=== PATIENT | male | born 1930 | race Caucasian/White ===

== ENCOUNTER 2019-06-25 16:55 | Emergency (ER) | payer OTHER ==
[2019-06-25 18:51] LABS: Absolute Lymphocytes (CBC) 2.1 K/uL (0.7-4.9); Basophils % 0.8 % (0-1.3); Hematocrit 37.3 % (39.6-49.0); Lymphocytes % 22.8 % (15.3-44.8); MPV 11.2 fL (7.6-11.3); RBC Red Blood Cell Count 4.31 M/uL (4.33-5.43)
[2019-06-25 18:54] LABS: Protime INR 1.11
[2019-06-25 19:08] LABS: Albumin 3.6 g/dL (3.4-5.0); Bilirubin Direct 0.2 mg/dL (0-0.2); Bilirubin Total 0.6 mg/dL (0.2-1.0); Potassium 3.5 mmol/L (3.5-5.1); Protein, Total 6.8 g/dL (6.4-8.2)
--- NOTE | 2019-06-25 20:27 | RAD REPORT ---
EXAM DESCRIPTION: CT - Abdomen Pelvis W Contrast - 06/25/2019 7:50 pm CLINICAL HISTORY: Abd pain;Constipation COMPARISON: None. TECHNIQUE: Biphasic, helical CT imaging of the abdomen and pelvis was performed following 100 ml non -ionic IV contrast. No oral contrast. All CT scans are performed using dose optimization technique as appropriate and may include automated exposure control or mA/KV adjustment according to patient size. FINDINGS: No suspicious findings in the lung bases. The liver, spleen, and pancreas show no suspicious findings. Cholecystectomy clips are present. No bi liary tree dilatation. Symmetric renal function is seen with no hydronephrosis or suspicious renal mass. No pyelonephritis o r acute parenchymal process. No bladder abnormalities. No adrenal abnormalities. No gastric dilatation or wall thickening. No dilated small bowel loops or focal small bowel abnormali ty. Trace stranding seen in the presacral soft tissues. No colon wall thickening or mass. Sigmoid col on is redundant extending into the anterior upper abdomen. Mild left-sided diverticulosis without div erticulitis. No abnormal stool volume in the colon. No free air, free fluid or pneumatosis. No hernia, mass or bulky lymphadenopathy. No suspicious bony findings. IMPRESSION: Contrast enhanced CT abdomen and pelvis imaging shows no obstruction, free air or surgic ally emergent finding. Minimal stranding in the presacral soft tissues, nonspecific with no wall thickening or focal abnorma lity of the adjacent rectum. No abnormal stool volume in the colon.
[2019-06-25 21:09] LABS: Urine Blood NEGATIVE (NEG); Urine Glucose NEGATIVE (NEG); Urine Protein NEGATIVE (NEG)
--- NOTE | 2019-06-25 21:31 | ER ---
Nurse's Notes [facility] Name: Yosi Odonnell Age: 89 yrs Sex: Male : 1930 Arrival Date: 06/25/2019 Time: 17:06 Bed 16 Private MD: Diagnosis: Unspecified abdominal pain;Diarrhea, unspecified Presentation: 06/25 17:06 Presenting complaint: EMS states: Pt. is 89 yr. old, was recently discharged from [address] for constipation. They did an x-ray and it showed that the pt. was not impacted and was sent home with medication for the constipation. Family reports that the pt. has not taken any of the medications that were prescribed due to the pt. vomiting. Had a loose bowel movement and it was brown with pink steaks and pus. BP 111/68. Transition of care: patient was not received from another setting of care. Onset of symptoms is unknown. Risk Assessment: Do you want to hurt yourself or someone else? Patient reports no desire to harm self or others. Care prior to arrival: None. 17:06 Method Of Arrival: EMS: [place] [id number] 17:06 Acuity: CORRINE 3 [facility] 17:06 Initial Sepsis Screen: Does the patient meet any 2 criteria? No. Patient's initial [facility] sepsis screen is negative. Does the patient have a suspected source of infection? No. Patient's initial sepsis screen is negative. Triage Assessment: 17:00 General: Appears in no apparent distress. comfortable, obese, Behavior is calm, rb1 cooperative, Denies fever. Pain: Complains of pain in abdomen Pain currently is 5 out of 10 on a pain scale. Neuro: Level of Consciousness is awake, obeys commands, confused, Oriented to person. Cardiovascular: Capillary refill < 3 seconds is brisk in bilateral fingers. Respiratory: Airway is patent Respiratory effort is even, unlabored, Respiratory pattern is regular, symmetrical. GI: Parent/caregiver reports the patient having constipation, diarrhea, vomiting. : Parent/caregiver report the patient having incontinence. Derm: Skin is pink, warm \T\ dry. Historical: - Allergies: 17:06 Sulfa (Sulfonamide Antibiotics); rb1 - Home Meds: 17:06 levothyroxine 112 mcg tab 1 tab once daily [Active]; rivastigmine tartrate oral 13.3 rb1 mg/ 24 h oral daily [Active]; Januvia 100 mg oral tab 1 tab once daily [Active]; losartan-hydrochlorothiazide 100-25 mg oral tab 1 tab once daily [Active]; gabapentin 300 mg oral cap 1 cap 3 times per day [Active]; amlodipine 10 mg tab 1 tab once daily [Active]; memantine HCL ER 28 mg 1 tab daily [Active]; ranitidine HCl 300 mg Oral cap 1 cap 2 times per day [Active]; pioglitazone HCL/Actos 30 mg 1 tab daily [Active]; metformin 500 mg Oral tab 1 tab 3 times a day [Active]; citalopram 40 mg tab 1 tab once daily [Active]; furosemide 40 mg Oral tab 1 tab once daily [Active]; potassium chloride 20 mEq Oral TbER 2 tab once daily [Active]; atorvastatin 20 mg oral tab 1 tab once daily [Active]; tamsulosin 0.4 mg oral cp24 1 cap once daily [Active]; trazodone 50 mg Oral tab 1 tab daily [Active]; isosorbide mononitrate 120 mg Oral Tb24 1 tab once daily [Active]; aspirin 81 mg Oral chew 1 tab once daily [Active]; melatonin 10 mg Oral tab 1 tab daily [Active]; - PMHx: 17:06 Diabetes - NIDDM; High Cholesterol; Hypertension; rb1 17:06 Dementia; Alzheimers; heart disease; prostate; Anxiety; Depression; umbilical hernia; rb1 - PSHx: 17:06 pacemaker; Quadruple Bypass; left hand; left femur; right knee; Cholecystectomy; rb1 - Immunization history:: Adult Immunizations up to date. - Social history:: Smoking status: Patient/guardian denies using tobacco. - Ebola Screening: : Patient negative for fever greater than or equal to 101.5 degrees Fahrenheit, and additional compatible Ebola Virus Disease symptoms. Screenin:06 Abuse screen: Denies threats or abuse. Nutritional screening: No deficits noted. rb1 Tuberculosis screening: No symptoms or risk factors identified. Fall Risk Fall in past 12 months (25 points). Secondary diagnosis (15 points) Alzheimer's, dementia, impaired mobility, No IV (0 pts). Ambulatory Aid- Crutches/Cane/Walker (15 pts). Gait- Weak (10 pts.). Mental Status- Overestimates/Forgets Limitations (15 pts.). Total Snyder Fall Scale indicates High Risk Score (45 or more points). Fall prevention measures have been instituted. Side Rails Up X 2 Placed Close to Nursing Station 1:1 Attendant Assigned Frequent Obs/Assessments Occuring Family Present and informed to notify staff if the need to leave the bedside As available patient and family educated on Fall Prevention Program and Strategies. Assessment: 17:00 General: See triage assessment. rb1 17:06 GI: Bowel sounds present X 4 quads. Abd is soft X 4 quads. rb1 18:00 Reassessment: Patient appears in no apparent distress at this time. No changes from rb1 previously documented assessment. 19:00 Reassessment: Notified provider that the family reports the pt. has anuja in the back rb1 of his head from a previous fall that need to be removed. 19:05 Reassessment: Patient appears in no apparent distress at this time. No changes from jb4 previously documented assessment. Patient and/or family updated on plan of care and expected duration. Pain level reassessed. 21:00 Reassessment: Patient appears in no apparent distress at this time. No changes from jb4 previously documented assessment. Patient and/or family updated on plan of care and expected duration. Pain level reassessed. Reassessment: Patient appears in no apparent distress at this time. No changes from previously documented assessment. Patient and/or family updated on plan of care and expected duration. Pain level reassessed. 22:09 Reassessment: Patient appears in no apparent distress at this time. No changes from jb4 previously documented assessment. Patient and/or family updated on plan of care and expected duration. Pain level reassessed. Pt's family verbalized understanding of d/c and follow up instructions. Pt assisted out of ED via wheelchair, and assisted into family vehicle. Vital Signs: 17:06 BP 122 / 67; Pulse 70; Resp 19; Pulse Ox 94% on R/A; Weight 136.08 kg (R); Height 6 ft. rb1 1 in. (185.42 cm) (R); 18:00 BP 126 / 72; Pulse 69; Resp 17; Temp 97.6(TE); Pulse Ox 94% on R/A; Pain 5/10; rb1 20:15 BP 154 / 81; Pulse 71; Resp 18; Pulse Ox 95% on R/A; jb4 21:15 BP 105 / 52; Pulse 67; Resp 16; Pulse Ox 94% on R/A; jb4 17:06 Body Mass Index 39.58 (136.08 kg, 185.42 cm) rb1 ED Course: 17:06 Patient arrived in ED. rb1 17:06 Arm band placed on left wrist. rb1 17:06 Patient has correct armband on for positive identification. Bed in low position. Call rb1 light in reach. Side rails up X2. Pulse ox on. NIBP on. 17:09 Nathan Walker NP is PHCP. pm1 17:10 Irwin Salas MD is Attending Physician. pm1 17:11 Triage completed. rb1 18:12 Radiology exam delayed due to lab results not completed at this time. (BUN/Creatinine). kw1 18:14 Denisa Christine, RN is Primary Nurse. rb1 18:55 Inserted saline lock: 20 gauge in left forearm, using aseptic technique. Blood ms collected. 18:56 Report given to CAIT Redmond. rb1 19:50 CT Abd/Pelvis - IV Contrast Only In Process Unspecified. EDMS 22:13 No provider procedures requiring assistance completed. IV discontinued, intact, jb4 bleeding controlled, No redness/swelling at site. Pressure dressing applied. Administered Medications: No medications were administered Intake: 18:48 Wet brief rb1 Output: 18:48 Urine: 1ml; Total: 1ml. rb1 18:48 Wet brief rb1 Outcome: 21:30 Discharge ordered by . pm1 22:13 Discharged to home via wheelchair, with family. jb4 22:13 Condition: stable 22:13 Discharge instructions given to family, Instructed on discharge instructions, follow up and referral plans. Demonstrated understanding of instructions, follow-up care. 22:13 Patient left the ED. jb4 Signatures: Dispatcher [employer] EDUT Queta Bravo ms Denisa Christine, RN RN rb1 Nathan Walker, SARAI STRATE[employer]IC PLANNING DIRECTOR pm1 Chad Hernandez RN RN jb4 Elba Ridley kw1 Corrections: (The following items were deleted from the chart) 22:11 19:05 Reassessment: Patient appears in no apparent distress at this time. Patient jb4 and/or family updated on plan of care and expected duration. Pain level reassessed. Patient is alert, oriented x 3, equal unlabored respirations, skin warm/dry/pink. jb4
--- NOTE | 2019-06-25 21:31 | EDPHYS ---
Physician Documentation [facility] Name: Yosi Odonnell Age: 89 yrs Sex: Male : 1930 Arrival Date: 06/25/2019 Time: 17:06 Bed 16 Private MD: ED Physician Irwin Salas HPI: 06/25 17:35 This 89 yrs old Male presents to ER via EMS with complaints of Constipation, pm1 Abdominal Pain. 17:35 The patient presents with abdominal pain that is diffuse. pm1 17:35 Onset: The symptoms/episode began/occurred 10 day(s) ago. The symptoms do not radiate. pm1 Associated signs and symptoms: Pertinent positives: constipation, diarrhea, vomit x 2 yesterday, Pertinent negatives: dysuria, fever, headache. Modifying factors: The symptoms are alleviated by nothing, the symptoms are aggravated by nothing. The patient has experienced similar episodes in the past, a few times. The patient has been recently seen by a physician: 2 day(s) ago, with similar presenting complaints, and apparently given a diagnosis of constipation and discharged home with miralax and lactulose. Patient has not taken any of the medications yet, lab tests were done, X-rays were performed, [facility]. Historical: - Allergies: 17:06 Sulfa (Sulfonamide Antibiotics); rb1 - Home Meds: 17:06 levothyroxine 112 mcg tab 1 tab once daily [Active]; rivastigmine tartrate oral 13.3 rb1 mg/ 24 h oral daily [Active]; Januvia 100 mg oral tab 1 tab once daily [Active]; losartan-hydrochlorothiazide 100-25 mg oral tab 1 tab once daily [Active]; gabapentin 300 mg oral cap 1 cap 3 times per day [Active]; amlodipine 10 mg tab 1 tab once daily [Active]; memantine HCL ER 28 mg 1 tab daily [Active]; ranitidine HCl 300 mg Oral cap 1 cap 2 times per day [Active]; pioglitazone HCL/Actos 30 mg 1 tab daily [Active]; metformin 500 mg Oral tab 1 tab 3 times a day [Active]; citalopram 40 mg tab 1 tab once daily [Active]; furosemide 40 mg Oral tab 1 tab once daily [Active]; potassium chloride 20 mEq Oral TbER 2 tab once daily [Active]; atorvastatin 20 mg oral tab 1 tab once daily [Active]; tamsulosin 0.4 mg oral cp24 1 cap once daily [Active]; trazodone 50 mg Oral tab 1 tab daily [Active]; isosorbide mononitrate 120 mg Oral Tb24 1 tab once daily [Active]; aspirin 81 mg Oral chew 1 tab once daily [Active]; melatonin 10 mg Oral tab 1 tab daily [Active]; - PMHx: 17:06 Diabetes - NIDDM; High Cholesterol; Hypertension; rb1 17:06 Dementia; Alzheimers; heart disease; prostate; Anxiety; Depression; umbilical hernia; rb1 - PSHx: 17:06 pacemaker; Quadruple Bypass; left hand; left femur; right knee; Cholecystectomy; rb1 - Immunization history:: Adult Immunizations up to date. - Social history:: Smoking status: Patient/guardian denies using tobacco. - Ebola Screening: : Patient negative for fever greater than or equal to 101.5 degrees Fahrenheit, and additional compatible Ebola Virus Disease symptoms. ROS: 17:35 Constitutional: Negative for fever, chills, and weight loss, Eyes: Negative for injury, pm1 pain, redness, and discharge, ENT: Negative for injury, pain, and discharge, Neck: Negative for injury, pain, and swelling, Cardiovascular: Negative for chest pain, palpitations, and edema, Respiratory: Negative for shortness of breath, cough, wheezing, and pleuritic chest pain. 17:35 Back: Negative for injury and pain, : Negative for injury, bleeding, discharge, and swelling, MS/Extremity: Negative for injury and deformity, Skin: Negative for injury, rash, and discoloration. 17:35 Neuro: Negative for headache, weakness, numbness, tingling, and seizure. 17:35 Abdomen/GI: Positive for abdominal pain, vomiting, diarrhea, constipation. 17:35 Abdomen/GI: Negative for black/tarry stool. Exam: 17:35 Constitutional: This is a well developed, well nourished patient who is awake, alert, pm1 and in no acute distress. Head/Face: Normocephalic, atraumatic. Neck: Trachea midline, no thyromegaly or masses palpated, and no cervical lymphadenopathy. Supple, full range of motion without nuchal rigidity, or vertebral point tenderness. No Meningismus. Chest/axilla: Normal chest wall appearance and motion. Nontender with no deformity. No lesions are appreciated. Cardiovascular: Regular rate and rhythm with a normal S1 and S2. No gallops, murmurs, or rubs. Normal PMI, no JVD. No pulse deficits. Respiratory: Lungs have equal breath sounds bilaterally, clear to auscultation and percussion. No rales, rhonchi or wheezes noted. No increased work of breathing, no retractions or nasal flaring. Abdomen/GI: Soft, non-tender, with normal bowel sounds. No distension or tympany. No guarding or rebound. No evidence of tenderness throughout. Back: No spinal tenderness. No costovertebral tenderness. Full range of motion. Skin: Warm, dry with normal turgor. Normal color with no rashes, no lesions, and no evidence of cellulitis. MS/ Extremity: Pulses equal, no cyanosis. Neurovascular intact. Full, normal range of motion. 17:35 Neuro: Orientation: is normal, Motor: is normal, moves all fours. 20:31 Abdomen/GI: Rectal exam: rectal tone normal, Stool: brown, small specks of bright red pm1 blood, mass, is not appreciated, swelling, is not appreciated, tenderness, is not appreciated, Ruy CHAVIRA. Vital Signs: 17:06 BP 122 / 67; Pulse 70; Resp 19; Pulse Ox 94% on R/A; Weight 136.08 kg (R); Height 6 ft. rb1 1 in. (185.42 cm) (R); 18:00 BP 126 / 72; Pulse 69; Resp 17; Temp 97.6(TE); Pulse Ox 94% on R/A; Pain 5/10; rb1 20:15 BP 154 / 81; Pulse 71; Resp 18; Pulse Ox 95% on R/A; jb4 21:15 BP 105 / 52; Pulse 67; Resp 16; Pulse Ox 94% on R/A; jb4 17:06 Body Mass Index 39.58 (136.08 kg, 185.42 cm) rb1 MDM: 17:19 Patient medically screened. chase 21:29 Data reviewed: vital signs. Counseling: I had a detailed discussion with the patient pm1 and/or guardian regarding: the historical points, exam findings, and any diagnostic results supporting the discharge/admit diagnosis, lab results, radiology results, the need for outpatient follow up, to return to the emergency department if symptoms worsen or persist or if there are any questions or concerns that arise at home. 06/25 17:20 Order name: Basic Metabolic Panel; Complete Time: 19:14 pm1 06/25 17:20 Order name: CBC with Diff; Complete Time: 19:14 pm1 06/25 17:20 Order name: Creatinine for Radiology; Complete Time: 19:14 pm1 06/25 17:20 Order name: Hepatic Function; Complete Time: 19:14 pm1 06/25 17:20 Order name: Lipase; Complete Time: 19:14 pm1 06/25 17:20 Order name: Type And Screen; Complete Time: 19:54 pm1 06/25 17:20 Order name: IV Saline Lock; Complete Time: 18:54 pm1 06/25 17:20 Order name: Labs collected and sent; Complete Time: 18:54 pm1 06/25 17:20 Order name: Urine Dipstick-Ancillary (obtain specimen); Complete Time: 21:02 pm1 06/25 17:21 Order name: CT Abd/Pelvis - IV Contrast Only; Complete Time: 20:30 pm1 06/25 17:22 Order name: PT-INR; Complete Time: 18:58 pm1 06/25 21:07 Order name: Urine Dipstick--Ancillary (enter results) cm6 06/25 21:10 Order name: Urine Dipstick-Ancillary; Complete Time: 21:58 EDMS Administered Medications: No medications were administered Disposition: 06/25/19 21:30 Discharged to Home. Impression: Unspecified abdominal pain, Diarrhea, unspecified. - Condition is Stable. - Discharge Instructions: Abdominal Pain, Adult, Food Choices to Help Relieve Diarrhea, Adult, Diarrhea, Adult. - Medication Reconciliation Form, Thank You Letter, Antibiotic Education, Prescription Opioid Use form. - Follow up: Emergency Department; When: As needed; Reason: Worsening of condition. Follow up: Private Physician; When: 2 - 3 days; Reason: Recheck today's complaints, Continuance of care, Re-evaluation by your physician. - Problem is new. - Symptoms have improved. Signatures: Dispatcher [employer] EDMS Irwin Salas MD MD cha Barber, Rebecca RN Nathan Quijano, FRIED CAKE MAKER FRIED CAKE MAKER pm1 Chad Hernandez RN RN jb4 Corrections: (The following items were deleted from the chart) 22:13 21:30 06/25/2019 21:30 Discharged to Home. Impression: Unspecified abdominal pain; jb4 Diarrhea, unspecified. Condition is Stable. Forms are Medication Reconciliation Form, Thank You Letter, Antibiotic Education, Prescription Opioid Use. Follow up: Emergency Department; When: As needed; Reason: Worsening of condition. Follow up: Private Physician; When: 2 - 3 days; Reason: Recheck today's complaints, Continuance of care, Re-evaluation by your physician. Problem is new. Symptoms have improved. pm1
[2019-06-25 23:44] VITALS: TEMP 97.6
[2019-06-25 23:48] VITALS: BP 105/52; O2SAT 94
== END 2019-06-25 22:13 | disposition home or self-care (01) ==
LOC: ER 16:55
DX: R19.7 Diarrhea, unspecified (principal); I10 Essential (primary) hypertension; G30.9 Alzheimer's disease, unspecified; F02.80 Dementia in other diseases classified elsewhere, unspecified severity, without behavioral disturbance, psychotic disturbance, mood disturbance, and anxiety; E11.9 Type 2 diabetes mellitus without complications; E78.00 Pure hypercholesterolemia, unspecified; F41.9 Anxiety disorder, unspecified; F32.9 Major depressive disorder, single episode, unspecified; Z79.82 Long term (current) use of aspirin; Z88.2 Allergy status to sulfonamides
CPT/HCPCS: 85025; 80048; 36415; 86900; 86850; 85610; 86901; 80076; 81003; 83690; 74177; Q9967; 99284